=== PATIENT | male | born 1955 | race Caucasian/White ===

== ENCOUNTER 2022-10-18 18:45 | Inpatient (IN) | payer MEDICARE, SELFPAY ==
[2022-10-18 20:04] LABS: Platelet Count 251 10^3/cmm (157-399)
[2022-10-18 20:12] LABS: Partial Thromboplastin Time 72.3 SECONDS (23.9-36.7)
[2022-10-18] MEDS: dilTIAZem 60 mg Tablet PO (20:45)
[2022-10-18 20:46] VITALS: BP 119/81; PULSE 83; RESP 17; TEMP 36.5; O2SAT 92
[2022-10-18] MEDS: heparin drip 25,000 UNIT/500 ML PREMIX 24.79 UNIT IV (21:05)
--- NOTE | 2022-10-18 22:02 | P.HP_ITS ---
Providers/Chief Complaint Admitting Physician: Jolanta Bond MD Primary Care Provider: Aureliano Golden Chief Complaint: Heart History of Present Illness Brandt Mcgill is a 67 year old male with history of asthma hypertension depression was transferred from [facility] for new onset atrial fibrillation. He had presented to [facility] for complaint of difficulty breathing for 1 week. He had multiple visits to his PCP for shortness of breath which was thought to be an asthma exacerbation, but eventually he was legs started getting swollen and he went to [facility] for further evaluation. There he was found to have atrial fibrillation with rapid ventricular rate and was started on Cardizem drip heparin drip received 1 dose of digoxin and IV Lasix 40 mg. He started feeling better and now is transferred to [facility] for further intervention. He denies any history of fever cough cold nausea vomiting chest pain urinary or bowel complaints. Review of Systems Narrative: As per HPI Medications/Allergies Home Medications Medication Instructions Recorded Confirmed Last Taken Type aspirin 1XD 10/18/22 10/18/22 History clonazepam 2 mg tablet mg BEDTIME 10/18/22 10/17/22 History duloxetine 60 mg capsule,delayed mg 1XD 10/18/22 10/18/22 History release sprinkle gabapentin 2XD 10/18/22 10/18/22 History losartan 100 1 tab PO DAILY 10/18/22 10/18/22 10/18/22 History mg-hydrochlorothiazide 25 mg tablet metformin 1XD 10/18/22 10/18/22 History tizanidine 4 mg tablet mg 2XD 10/18/22 10/18/22 History Allergies Allergy/AdvReac Type Severity Reaction Status Date / Time morphine Allergy ADR-Nightma Verified 10/18/22 19:40 re Vitals/I&O/Wt Last Vital Signs Temp 97.7 F 10/18/22 20:46 Pulse 83 10/18/22 20:46 Resp 17 10/18/22 20:46 BP 119/81 10/18/22 20:46 Pulse Ox 92 10/18/22 20:46 O2 Del Method Room Air 10/18/22 20:46 10/18/22 10/18/22 10/18/22 06:59 14:59 22:59 Output Total 400 / 400 Balance -400 / -400 Weight last 48 hrs Weight 88.541 kg Weight 88.507 kg Physical Exam Narrative: He is alert awake oriented x3 comfortably lying in bed not in acute distress Chest clear to auscultation bilaterally Cardiovascular normal heart sounds irregular rhythm Abdomen soft nontender nondistended normal bowel sounds Extremities 2+ bilateral pedal edema present Data 10/18/22 19:45 A&P Assessment and plan (1) New onset atrial fibrillation: (2) Shortness of breath: Plan Patient had presented with difficulty breathing and bilateral lower extremity swelling likely secondary to new onset atrial fibrillation of unknown etiology Will do Cardizem 60 mg 3 times daily Discontinue heparin drip Check 2D echo in a.m. Will give Lovenox 80 mg every 12 for anticoagulation Check labs in a.m. Resume home medications Cardiac diet [facility] is [facility] Necessity Statement*: He needs continued hospitalization for more than 2 midnights for further evaluation of new onset atrial fibrillation Time Spent in Patient Care: 30 minutes Coding Level of Care Code Acute Code for [facility] Fwd Diagnoses New onset atrial fibrillation I48.91 Shortness of breath R06.02 Time Spent (min) 30
[2022-10-19] VITALS (87 sets, daily range): BP systolic 96–136; BP diastolic 56–86; PULSE 74–132; RESP 11–53; TEMP 36.4–36.8; O2SAT 84–96
--- NOTE | 2022-10-19 00:17 | XRR_ITS ---
PROCEDURE INFORMATION: Exam: XR Chest Exam date and time: 10/19/2022 4:32 AM Age: 67 years old Clinical indication: Dyspnea; Additional info: Shortness of breath TECHNIQUE: Imaging protocol: Radiologic exam of the chest. Views: 1 view. COMPARISON: No relevant prior studies available. FINDINGS: Tubes, catheters and devices: A right-sided peripherally inserted central catheter is noted with its tip overlying the cavoatrial junction. Lungs: Bibasilar opacities likely represent effusion and/or parenchymal disease. Pleural spaces: Unremarkable. No pleural effusion. No pneumothorax. Heart/Mediastinum: Unremarkable. No cardiomegaly. Bones/joints: Cervical fixation hardware and degenerative changes are noted in the bones. XR/XR chest 1V portable [id number] IMPRESSION: Basilar opacity likely representing effusion and/or parenchymal disease.
[2022-10-19] MEDS: famotidine 20 mg/2 mL INJ IVP (01:19)
[2022-10-19 03:18] LABS: Partial Thromboplastin Time 64.9 SECONDS (23.9-36.7)
[2022-10-19 03:36] LABS: NT Pro B Type Natriuretic Pept 4173 pg/mL (0-125)
--- NOTE | 2022-10-19 08:08 | USCV_ITS ---
Brandt Mcgill Age: 67 Gender: M : 1955 Exam Date: 10/19/2022 08:42 Ordering Phys: Jolanta Bond MD Technologist: Benji Brice Exam Location: [place] Indication: afib BP: 158 / 94 HR: 100 Rhythm: Atrial fibrillation Technical Quality: Poor MEASUREMENTS (Male / Female) Normal Values 2D ECHO LVOT Diameter 2.0 cm LV Ejection Fraction MOD 2C 46.4 % LV Ejection Fraction 2C AL 46.4 % LA Diameter 3.7 cm LA Width 4.2 cm LA Height 5.8 cm RA Width 3.6 cm RA Height 4.6 cm Aorta at Sinotubular Diameter 3.0 cm IVC Diameter 2.0 cm M-MODE Aortic Annulus Diameter 3.1 cm LA Ao Ratio MM 1.3 MV E Point Septal Separation 0.9 cm DOPPLER AV Peak Velocity 179.0 cm/s LVOT Peak Velocity 99.0 cm/s AV Area Cont Eq vti 1.9 cm squared AV Area Cont Eq pk 1.7 cm squared MV Peak Velocity 150.0 cm/s MV Area PHT 7.9 cm squared Mitral E to A Ratio 3.6 MV E' Velocity 70.5 cm/s Mitral E to MV E' Ratio 11.3 Mitral E to LV E' Lateral Ratio 10.0 Mitral E to LV E' Septal Ratio 12.8 TR Peak Velocity 244.2 cm/s TR Peak Gradient 23.9 mmHg TR Mean Velocity 196.5 cm/s TR Mean Gradient 16.8 mmHg TR Velocity Time Integral 59.1 cm Right Atrial Pressure 3.0 mmHg Pulmonary Artery Systolic Pressu 26.9 mmHg PV Peak Velocity 104.7 cm/s RV Acceleration Time 0.1 s RV Ejection Time 0.2 s RV AcT/ET 0.4 FINDINGS Left Ventricle Study is poor in quality. Only 1 view is of any use. The ventricle is upper limit of normal in size to mildly enlarged. There is mild global hypokinesis with an ejection fraction of 40%. Diastolic function cannot be determined due to the rhythm. The rhythm is atrial fibrillation. Right Ventricle Normal right ventricular size and systolic function. Normal right ventricular systolic pressure. Right Atrium The right atrium is normal in size. Left Atrium Mildly increased left atrial size. Mitral Valve Structurally normal mitral valve. Trace mitral valve regurgitation. Aortic Valve Aortic valve not well visualized. Structurally normal trileaflet aortic valve. Mild aortic valve calcification. Aortic valve sclerosis without stenosis or regurgitation. Tricuspid Valve Tricuspid valve not well visualized. Trace tricuspid valve regurgitation. Pulmonic Valve Pulmonic valve not well visualized. Pericardium Normal pericardium without effusion. Aorta Normal ascending aorta dimension. IVC Inferior vena cava is dilated. CONCLUSIONS Study is poor in quality. Only 1 view is of any use. The ventricle is upper limit of normal in size to mildly enlarged. There is mild global hypokinesis with an ejection fraction of 40%. Diastolic function cannot be determined due to the rhythm. The rhythm is atrial fibrillation. Mildly increased left atrial size. Structurally normal mitral valve. Trace mitral valve regurgitation. Inferior vena cava is dilated. There are no prior echocardiogram studies to compare. Dr. Ke Ferrell MD (Electronically Signed) Final Date: 19 October 2022 12:57 S
[2022-10-19] MEDS: dilTIAZem 60 mg Tablet PO (08:18)
[2022-10-19 09:13] LABS: Partial Thromboplastin Time 48.4 SECONDS (23.9-36.7)
[2022-10-19 09:15] LABS: D Dimer 2.28 ug/mLFEU (0-0.59)
[2022-10-19 09:31] LABS: Anion Gap 13.4 (5-19); Blood Urea Nitrogen 9 mg/dL (8-23); Calcium 8.9 mg/dL (8.5-10.5); Carbon Dioxide 28 mmol/L (22-29); Chloride 98 mmol/L (98-107); Glomerular Filtration Rate 96.1 mL/min (90-130); Glucose 157 mg/dL (65-115); Magnesium 1.9 mg/dL (1.7-2.3); Osmolality Calculated 284 mOsm/kg (285-295); Potassium 3.4 mmol/L (3.5-5.1); Sodium 136 mmol/L (136-145); Thyroid Stimulating Hormone 2.11 uIU/mL (0.27-4.20)
--- NOTE | 2022-10-19 10:16 | CT_ITS ---
WS: [id number] CTA OF THE CHEST WITH PULMONARY EMBOLISM PROTOCOL TECHNIQUE: High-resolution contrast enhanced CTA of the chest with coronal and sagittal reformatted i mages with pulmonary embolism protocol. MIP images are also reviewed. CLINICAL INFORMATION: afib, sob COMPARISON: None. DLP: 510.[address] scans at [facility] use at least one of these dose optimization techniques: automated e xposure control; mA and/or kV adjustment per patient size (includes targeted exams where dose is matc hed to clinical indication); or iterative reconstruction. FINDINGS: Proximal main pulmonary arteries are normal. Normal segmental and subsegmental pulmonary arteries. No evidence of pulmonary embolus. Cardiomegaly. Aneurysmal ascending thoracic aorta measuring 4.1 cm. Enlarged LEFT ventricle. No media stinal or hilar lymphadenopathy. No axillary lymphadenopathy. Small to moderate bilateral pleural effusions with compressive atelectasis in the lung bases. Upper l ungs are better aerated. A few hazy LEFT opacities in the lung bases. Small hazy opacity in the LEFT upper lobe anteriorly likely infectious or inflammatory measuring 1.5 cm. Interstitial edema in the l saud bases. Contrast reflux into the hepatic veins. Recommend correlation for RIGHT heart dysfunction. Moderate t horacic kyphosis with ankylosis. Chronic anterior wedging at L1. IMPRESSION: 1. Proximal main pulmonary arteries are normal. No evidence of pulmonary embolus. 2. Aneurysmal ascending thoracic aorta measuring 4.1 cm. 3. Cardiomegaly. 4. Small to moderate bilateral pleural effusions with compressive atelectasis in the lung bases. 5. A few hazy opacities in both lower lobes with a small hazy opacity in the LEFT upper lobe anterio rly likely infectious or inflammatory. 6. Interstitial edema in the lung bases. Reflux of contrast into the hepatic veins can be seen with RIGHT heart dysfunction.
--- NOTE | 2022-10-19 10:16 | USCV_ITS ---
Brandt Mcgill Age: 67 Gender: M : 1955 Exam Date: 10/19/2022 11:02 Ordering Phys: Jolanta Bond MD Technologist: MICHAEL Exam Location: [facility] Indication: LE Swelling HISTORY: Lower extremity swelling. PROCEDURES: Venous duplex imaging was performed in bilateral lower extremities. The following venous structures were evaluated: common femoral vein, profunda vein, proximal portion of the greater saphenous vein, superficial femoral vein, and the popliteal vein. In addition, the posterior tibial and peroneal trunk were evaluated. Serial compression, augmentation maneuvers, and spectral Doppler flow evaluation were performed. FINDINGS: No evidence of DVT seen in any vessel visualized at this time. CONCLUSIONS No evidence of right lower extremity DVT. No evidence of left lower extremity DVT. Rasta Corley MD (Electronically Signed) Final Date: 19 October 2022 15:08 S
--- NOTE | 2022-10-19 10:16 | PM.PN ---
Subjective Subjective: , no signs of patient stating that his main complaint was shortness of breath Currently he is in atrial flutter No active chest pain endorsing feeling better Currently on room air I have requested CTA chest and venous Doppler for high D-dimer Potassium is low will be repleted Vitals/I&O/Wt Last Vital Signs Temp 97.9 F 10/19/22 07:43 Pulse 100 10/19/22 07:43 Resp 29 H 10/19/22 07:43 BP 133/79 10/19/22 07:43 Pulse Ox 94 10/19/22 07:43 O2 Del Method Room Air 10/19/22 07:43 FiO2 21 10/19/22 01:06 10/18/22 10/19/22 10/19/22 22:59 06:59 14:59 Intake Total 400 / 400 284.672 / 284.672 Output Total 1025 / 1025 400 / 1425 Balance -1025 / -1025 0 / -1025 284.672 / 284.672 Weight last 48 hrs Weight 86.636 kg Weight 88.541 kg Weight 88.507 kg Physical Exam Narrative: Atrial flutter heart rate 70s Awake and alert GCS 15 Currently on room air Lower extremity edema 2+ Abdomen soft S1, S2 variable Data 10/18/22 19:45 10/19/22 08:34 A&P Assessment and plan (1) Shortness of breath: (2) New onset atrial fibrillation: (3) New onset of congestive heart failure: (4) Hypokalemia: Plan Hypokalemia: Repleted New onset CHF Requested echo Start low-dose Lasix We will add magnesium for mildly low magnesium 1.9 Atrial flutter without RVR continue Cardizem Check TSH, for high D-dimer I requested venous Doppler and CTA chest to rule out PE I have started patient on therapeutic Lovenox discontinued heparin We will like to monitor 1 more day Full code Cardiac diet Attestations Medical Necessity Statement*: Discharge tomorrow if stable Diagnoses Shortness of breath R06.02 New onset atrial fibrillation I48.91 New onset of congestive heart failure I50.9 Hypokalemia E87.6
--- NOTE | 2022-10-19 10:39 | ECG_ITS ---
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 Measurements Intervals [place] Rate: 75 P: 0 AL: 0 QRS: 62 QRSD: 97 T: 213 QT: 456 QTc: 512 Interpretive Statements ATRIAL FLUTTER/TACHYCARDIA ST DEVIATION AND MODERATE T-WAVE ABNORMALITY, CONSIDER ANTEROLATERAL ISCHEMIA [-0.1+ mV T-WAVE IN V3-V6] ST DEVIATION AND MODERATE T-WAVE ABNORMALITY, CONSIDER INFERIOR ISCHEMIA [-0.1+ mV T-WAVE IN II/aVF] No previous ECG available for comparison Electronically Signed On 10-19-2022 17:20:47 CDT by Leeann Bella M.D. [id number]
[2022-10-19] MEDS: potassium chloride ER 20 mEq Tablet 40 MEQ PO (10:48)
[2022-10-19] MEDS: enoxaparin 80 mg/0.8 mL Syringe SUBCUT ×2 (10:48→23:05)
[2022-10-19] MEDS: dilTIAZem 30 mg Tablet PO ×3 (10:48→20:22)
[2022-10-19 10:55] LABS: Troponin(5th) Baseline 64 ng/L (0-15)
[2022-10-19 11:08] LABS: Troponin 5 2HR 61.99 ng/L (0-15)
[2022-10-19 11:09] LABS: Troponin 5 2HR Delta -2.01 ABS# (0-10)
--- NOTE | 2022-10-19 11:55 | ECG_ITS ---
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 Measurements Intervals [place] Rate: 75 P: 0 NC: 0 QRS: 56 QRSD: 85 T: -82 QT: 423 QTc: 473 Interpretive Statements ATRIAL FLUTTER/TACHYCARDIA MODERATE T-WAVE ABNORMALITY, CONSIDER ANTEROLATERAL ISCHEMIA [-0.1+ mV T-WAVE IN V3-V6] MODERATE T-WAVE ABNORMALITY, CONSIDER INFERIOR ISCHEMIA [-0.1+ mV T-WAVE IN II/aVF] Compared to ECG 10/19/2022 10:39:02 No significant changes Electronically Signed On 10-19-2022 17:23:12 CDT by Leeann Bella M.D. [id number]
[2022-10-19] MEDS: iohexol 350 mg/mL 500 mL Btl (per mL) IV (13:25)
[2022-10-19 15:20] LABS: Troponin 5 6HR 43.73 ng/L (0-15)
--- NOTE | 2022-10-19 16:16 | ECG_ITS ---
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 Measurements Intervals [place] Rate: 112 P: 0 CO: 0 QRS: 61 QRSD: 86 T: 233 QT: 346 QTc: 473 Interpretive Statements ATRIAL FLUTTER/TACHYCARDIA WITH RAPID VENTRICULAR RESPONSE ST DEVIATION AND MODERATE T-WAVE ABNORMALITY, CONSIDER ANTEROLATERAL ISCHEMIA [-0.1+ mV T-WAVE IN V3-V6] ST DEVIATION AND MODERATE T-WAVE ABNORMALITY, CONSIDER INFERIOR ISCHEMIA [-0.1+ mV T-WAVE IN II/aVF] Compared to ECG 10/19/2022 11:55:01 No significant changes Electronically Signed On 10-19-2022 17:24:18 CDT by Leeann Bella M.D. [id number]
[2022-10-19] MEDS: magnesium oxide 400 mg tablet PO (17:51)
[2022-10-20] VITALS (188 sets, daily range): BP systolic 98–150; BP diastolic 55–97; PULSE 70–151; RESP 10–37; TEMP 36.3–36.6; O2SAT 91–99
[2022-10-20 04:09] LABS: Basophils % 0.6 %; Eosinophils # 0.1 10^3/uL (0.0-0.8); Eosinophils % 1.3 %; Hematocrit 40.7 % (37-53); Lymphocytes # 1.5 10^3/uL (0.8-4.8); Lymphocytes % 21.9 %; Mean Corpuscular HGB Conc 32.9 g/dL (30-55); Mean Corpuscular Hemoglobin 33.3 pg (27-33); Mean Platelet Volume 9.3 fL (7.4-10.4); Monocytes # 0.7 10^3/uL (0.2-0.9); Monocytes % 10.1 %; Neutrophils # 4.49 10^3/uL (1.8-7.7); Neutrophils % 65.7 %; Nucleated Red Blood Cells % 0 %; Platelet Count 258 10^3/cmm (157-399); Red Blood Count 4.03 10^6/uL (3.85-5.65); Red Cell Distribution Width 14.6 % (12.1-15.1); White Blood Count 6.84 10^3/uL (3.29-11.43)
[2022-10-20 04:26] LABS: Alanine Aminotransferase 41 U/L (0-41); Alkaline Phosphatase 112 U/L (40-130); Anion Gap 12.7 (5-19); Aspartate Amino Transferase 29 U/L (0-40); Blood Urea Nitrogen 9 mg/dL (8-23); Calcium 8.9 mg/dL (8.5-10.5); Carbon Dioxide 27 mmol/L (22-29); Chloride 100 mmol/L (98-107); Globulin 3.2 g/dL (1.3-4.6); Glomerular Filtration Rate 96.1 mL/min (90-130); Glucose 128 mg/dL (65-115); Magnesium 2.1 mg/dL (1.7-2.3); Osmolality Calculated 282 mOsm/kg (285-295); Phosphorus 2.9 mg/dL (2.5-4.5); Potassium 3.7 mmol/L (3.5-5.1); Sodium 136 mmol/L (136-145); Total Bilirubin 0.7 mg/dL (0.15-1.2); Total Protein 6.2 g/dL (6.6-8.7)
[2022-10-20] MEDS: dilTIAZem 30 mg Tablet PO (05:31)
[2022-10-20] MEDS: FUROsemide 20 mg Tablet PO (08:22)
[2022-10-20] MEDS: magnesium oxide 400 mg tablet PO ×2 (08:22→18:27)
[2022-10-20] MEDS: enoxaparin 80 mg/0.8 mL Syringe SUBCUT (11:15)
[2022-10-20] MEDS: potassium chloride ER 20 mEq Tablet PO (11:15)
[2022-10-20] MEDS: FUROsemide 10 mg/mL SDV 2mL 20 MG IVP (11:16)
--- NOTE | 2022-10-20 11:39 | P.CONIM_ITS ---
Providers/Reason For Consult Consulting Physician/Specialty*: Cardiovascular medicine Reason for Consult*: Atrial fibrillation, left ventricular dysfunction, congestive heart failure, elevated troponin Requesting Physician: Hospitalist Attending Physician: Jolanta Bond MD Primary Care Provider: Aureliano Golden History of Present Illness History of Present Illness Brandt Mcgill is a 67 year old male who typically receives his health care in [facility]. His primary care provider is in that area. He has been having intermittent episodes of shortness of breath for the last several weeks. His tells me that these have been sudden episodes of breathlessness. They last for a day or 2 and then go away. About a week ago he had an episode which was very difficult to for him. He had been seeing his primary care provider who was concerned that perhaps it was an exacerbation of his reactive airways dis ease. He denies any chest pain or any sensation of a rapid heart rate. The problem only worsened and when he developed lower extremity edema he went to [facility] in [place] a couple days ago. There he was diagnosed with congestive heart failure, atrial fibrillation with a rapid rate. He received aspirin, Cardizem bolus and drip, Lasix 40 mg IV and a heparin drip. His initial heart rate was 147 bpm with an atrial fibrillation as the rhythm. He was transferred up here on heparin, switched to Lovenox, placed on metoprolol and continues on IV Lasix and potassium. There were no beds anywhere in the area. His EKGs here have shown atrial fibrillation with a controlled ventricu lar response. Intermittently has atrial fibrillation with a mildly rapid rate. His initial troponin was 64, the second [address] the last 44[address] CT of the chest showed no pulmonary embolism. Lower extremity duplex showed no DVT. An echo was a very poor quality study with an estimated EF of 40%. Only 1 view was available so it is difficult to assess wall motion disturbances. He has a history of atrial fibrillation with a bout of tick fever several years ago but it resolved on its own. He also has a history of underlying asthma, hypertension and glucose intolerance. He takes an angiotensin receptor cyrus with hydrochlorothiazide and metformin at home. Review of Systems Narrative: Review of systems is negative. Medications/Allergies Home Medications Medication Instructions Recorded Confirmed Last Taken Type aspirin 81 mg PO BEDTIME 10/18/22 10/19/22 10/18/22 History clonazepam 2 mg tablet 2 mg PO BEDTIME 10/18/22 10/19/22 10/17/22 History duloxetine 60 mg capsule,delayed 60 mg PO QAM 10/18/22 10/19/22 10/18/22 History release sprinkle gabapentin 200 mg PO BID 10/18/22 10/19/22 10/18/22 History losartan 100 1 tab PO QAM 10/18/22 10/19/22 10/18/22 History mg-hydrochlorothiazide 25 mg tablet metformin 500 mg PO BID 10/18/22 10/19/22 10/18/22 History tizanidine 4 mg tablet 4 mg PO BID 10/18/22 10/19/22 10/18/22 History albuterol sulfate 90 mcg/actuation 2 inh inhalation Q4H PRN Shortness 10/19/22 10/19/22 Unknown History aerosol inhaler Of Breath cholecalciferol (vitamin D3) 50 50 mcg PO DAILY 10/19/22 10/19/22 Unknown History mcg (2,000 unit) tablet (Vitamin D3) clonazepam 1 mg tablet 1 mg PO DAILY 10/19/22 10/19/22 10/17/22 History grape seed extract 50 mg tablet 150 mg PO DAILY 10/19/22 10/19/22 Unknown History magnesium 250 mg tablet 250 mg PO DAILY 10/19/22 10/19/22 Unknown History multivitamin 1 tab PO DAILY 10/19/22 10/19/22 Unknown History selenium 50 mcg tablet 50 mcg PO DAILY 10/19/22 10/19/22 Unknown History zinc acetate 50 mg (zinc) capsule 50 mg PO DAILY 10/19/22 10/19/22 Unknown History Allergies Allergy/AdvReac Type Severity Reaction Status Date / Time morphine Allergy ADR-Nightma Verified 10/18/22 19:40 re Current Medications Generic Name Dose Route Start Last Admin Trade Name Freq PRN Reason Stop Dose Admin Enoxaparin Sodium 80 mg 10/19/22 11:00 10/20/22 11:15 Enoxaparin 80 Mg/0.8 Ml Syringe SUBCUT 80 mg Q12H YONIS Administration Furosemide 20 mg 10/20/22 10:30 10/20/22 11:16 Furosemide 10 Mg/Ml Sdv 2ml IVP 20 mg Q24H YONIS Administration Magnesium Oxide 400 mg 10/19/22 18:00 10/20/22 08:22 Magnesium Oxide 400 Mg Tablet PO 400 mg BID YONIS Administration Potassium Chloride 20 meq 10/20/22 10:30 10/20/22 11:15 Potassium Chloride Er 20 Meq Tablet PO 20 meq DAILY YONIS Administration PFSH Acute PFSH: Medical History (Updated 10/20/22 @ 11:49 by Ke Ferrell MD) Cardiomyopathy Essential hypertension Glucose intolerance Vitals/I&O/Wt Last Vital Signs Temp 97.4 F L 10/20/22 09:00 Pulse 101 H 10/20/22 09:32 Resp 20 H 10/20/22 09:32 BP 98/55 10/20/22 09:00 Pulse Ox 96 10/20/22 09:32 O2 Del Method Room Air 10/20/22 09:32 FiO2 21 10/20/22 00:00 10/19/22 10/20/22 10/20/22 22:59 06:59 14:59 Intake Total 240 / 1244.672 240 / 240 Balance 240 / 1244.672 240 / 240 Weight last 48 hrs Weight 191 lb Weight 195 lb 3.2 oz Weight 195 lb 2 oz Physical Exam Narrative: GENERAL: In general he is comfortable at rest but is easily breathless with minimal exercise. HEENT: Exam within normal limits. NECK: Supple without jugular vein distention. The carotid upstroke is normal without bruits. BACK: Exam normal. LUNGS: Clear. Occasional moist rales in the bases HEART: Irregularly irregular rhythm ABDOMEN: Benign without organomegaly or tenderness. EXTREMITIES: No edema. NEUROLOGIC: Exam normal. SKIN: Unremarkable. Data 10/20/22 03:22 10/20/22 03:22 A&P Assessment and plan (1) New onset atrial fibrillation: (2) Shortness of breath: (3) New onset of congestive heart failure: (4) Cardiomyopathy: (5) Essential hypertension: (6) Glucose intolerance: Plan He is still volume overloaded. He needs continued diuresis. I would increase the Lopressor to 50 mg twice daily and add back his angiotensin receptor cyrus with thiazide diuretic. I would also switch him over to Eliquis since he will need to go home on this drug. I had a lengthy discussion with the patient and his . They request that he receive his outpatient cardiac care at [place]. He will need a stress test eventually to rule out ischemia though I do not think this is ischemia related. 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 I think he has been in atrial fibrillation longer than he realizes. Once he is compensated he may be discharged from here on p.o. Lasix, losartan with hydrochlorothiazide, potassium, metoprolol tartrate 50 mg 2 times a day and Eliquis 5 mg twice daily. He should then see a commercial floor covering installer in [place] for follow-up and for stress testing arrangements. Consult Attestations Medical Necessity Statement: Hospitalization for management of heart failure, atrial fibrillation. and Moderate Time for a total of 40 minutes, includes reviewing past or interval history, examining/interviewing patient, placing orders, counseling patient/family/other support, updating patient/family/other support, discussing plan of care with staff, communicating with other healthcare providers and documenting encounter Diagnoses New onset atrial fibrillation I48.91 Shortness of breath R06.02 New onset of congestive heart failure I50.9 Cardiomyopathy I42.9 Essential hypertension I10 Glucose intolerance E74.39
--- NOTE | 2022-10-20 12:32 | PM.PN ---
Subjective Subjective: Morning consulted Dr. Ferrell for EF of 40% with A-fib and CHF exacerbation Patient might need ischemic work up Patient is in agreement, at the bedside All questions answered Discontinue Cardizem and change it to metoprolol because of low EF At home regimen of losartan, he also wants his gabapentin and Cymbalta Vitals/I&O/Wt Last Vital Signs Temp 97.4 F L 10/20/22 09:00 Pulse 101 H 10/20/22 09:32 Resp 20 H 10/20/22 09:32 BP 98/55 10/20/22 09:00 Pulse Ox 96 10/20/22 09:32 O2 Del Method Room Air 10/20/22 09:32 FiO2 21 10/20/22 00:00 10/19/22 10/20/22 10/20/22 22:59 06:59 14:59 Intake Total 240 / 1244.672 240 / 240 Balance 240 / 1244.672 240 / 240 Weight last 48 hrs Weight 86.636 kg Weight 88.541 kg Weight 88.507 kg Physical Exam Narrative: Still signs of fluid overload present GCS 15 Awake and alert Atrial flutter heart rate in 80s Able to lay flat Currently on room air Blood pressure 98/55 mmHg around 9:32 AM Pleasant and cooperative at the bed Data 10/20/22 03:22 10/20/22 03:22 A&P Assessment and plan (1) Glucose intolerance: (2) Essential hypertension: (3) Cardiomyopathy: (4) Hypokalemia: (5) New onset of congestive heart failure: (6) New onset atrial fibrillation: (7) Shortness of breath: Plan Paroxysmal A-fib Anticoagulation switched to Eliquis Cardizem switched to metoprolol 50 mg twice daily Hypertension history Losartan added, this morning blood pressure is 98/55mmhg, will add holding parameters if systolic blood pressure below 100 he should not receive losartan Patient is already getting diuretics New onset CHF exacerbation EF is 40% Systolic CHF exacerbation Likely tachyarrhythmia related Will need ischemia work-up patient will like to follow-up at [facility] Appreciate Dr. Ferrell's recommendation Plan to discharge him tomorrow Currently on room air Monitor blood pressure and heart rate Full code Cardiac diet For diabetes related neuropathy continue gabapentin and Cymbalta Attestations Medical Necessity Statement*: Discharge tomorrow Diagnoses Glucose intolerance E74.39 Essential hypertension I10 Cardiomyopathy I42.9 Hypokalemia E87.6 New onset of congestive heart failure I50.9 New onset atrial fibrillation I48.91 Shortness of breath R06.02
--- NOTE | 2022-10-20 13:05 | PC.NURSE ---
Notified Dr. Ferrell that pt's HR is currently running consistently in the 140's. Metoprolol IVP 5mg x1 ordered
[2022-10-20] MEDS: metoprolol tartrate 1 mg/1 mL SDV 5 mL 5 MG IVP ×3 (13:23→17:20)
--- NOTE | 2022-10-20 15:50 | PC.NURSE ---
Addendum entered by Dano Kuo RN 10/20/22 18:15: HR in the 130's-140's. Instructed to give another dose of Metoprolol 5mg IVP x1 Original Note: Informed Dr. Ferrell that the pt's HR has once again been consistently staying in the 130';s
--- NOTE | 2022-10-20 16:40 | PC.NURSE ---
Notified Dr. Ferrell that the pt's HR response has been minimal with the last dose of Metoprolol. Instructed to wait 15 minutes and give another dose of Metoprolol 5mg IVP and then give the night scheduled dose of po metoprolol 1 hour later.
[2022-10-20] MEDS: metoprolol tartrate 50 mg Tablet PO ×2 (18:28→22:17)
[2022-10-20] MEDS: gabapentin 100 mg Capsule 200 MG PO (18:29)
[2022-10-20] MEDS: apixaban 5 mg Tablet PO (20:27)
[2022-10-20 20:55] LABS: Glucose Point of Care 180 mg/dL (70-110)
[2022-10-20] MEDS: LORazepam 0.5 mg Tablet PO (23:34)
[2022-10-21] VITALS (9 sets, daily range): BP systolic 121–162; BP diastolic 68–136; PULSE 69–139; RESP 16–34; TEMP 36.4–36.9; O2SAT 89–99
--- NOTE | 2022-10-21 00:03 | PC.NURSE ---
Patient still in afib w/rvr at 2200, rates in 130s. C/O shortness of breath with movement and feelings of anxiety, being uncomfortable. Refusing telemetry. Hospitalist notified, given orders for Metoprolol 50mg PO ONCE and Xanax 0.5mg PO ONCE. Patient stated he couldn't take Xanax because he had already taken his home medication, Clonazepam. Patient educated on medication safety during hospital stay, possible medication interactions, and that treatments during stay were not always the same as home. mapping supervisor and hospitalist notified. Patient then ambulated to nurses station and asked to speak to hospitalist. Notified hospitalist of request. Patient redirected back to room, hospitalist present. Given orders for Lorazepam 0.5mg PO ONCE. Home medication, Clonazepam, counted with second nurse in front of patient. Appropriate paperwork signed by both nurses and patient. Tamper proof tape was applied to medication bottle and then placed in pyxis. Recliner placed in room to help with patient comfort. Patient reeducated about need for telemetry and was agreeable to wear it at this time.
[2022-10-21 04:37] LABS: Anion Gap 18.8 (5-19); Blood Urea Nitrogen 20 mg/dL (8-23); Calcium 10.4 mg/dL (8.5-10.5); Carbon Dioxide 28 mmol/L (22-29); Chloride 98 mmol/L (98-107); Glomerular Filtration Rate 60.2 mL/min (90-130); Glucose 154 mg/dL (65-115); Magnesium 2.3 mg/dL (1.7-2.3); Osmolality Calculated 294 mOsm/kg (285-295); Potassium 5.8 mmol/L (3.5-5.1); Sodium 139 mmol/L (136-145)
[2022-10-21] MEDS: duloxetine 60 mg Capsule PO (05:44)
--- NOTE | 2022-10-21 06:37 | PC.NURSE ---
Patient continues to pull of telemetry. Education provided to patient, telemetry reapplied. called and told nurse patient was calling and complaining of sob, 02 at 96 and respirations 24.
--- NOTE | 2022-10-21 07:02 | PM.PN ---
Subjective Subjective: Patient has had a bad night. He became very anxious last evening. He has been complaining of shortness of breath all night. He became confused. He was taking off his monitors and oxygen saturation equipment. He would not keep anything on. His heart rate has been about 130 all night long. He has been up and around and will not sit still. This morning he is sitting upright in bed, is diaphoretic, is tachypneic and his heart rate is 130. His oxygen saturation is 98% on 1 L. Vitals/I&O/Wt Last Vital Signs Temp 97.7 F 10/21/22 04:00 Pulse 135 H 10/21/22 04:00 Resp 34 H 10/21/22 04:00 BP 148/121 10/21/22 04:00 Pulse Ox 99 10/21/22 04:00 O2 Del Method Nasal Cannula 10/21/22 04:00 FiO2 21 10/20/22 20:00 10/20/22 10/21/22 10/21/22 22:59 06:59 14:59 Intake Total 520 / 880 460 / 1340 Output Total 100 / 100 400 / 500 Balance 420 / 780 60 / 840 Physical Exam Narrative: GENERAL: In general he is anxious and short of breath HEENT: Exam within normal limits. NECK: Supple without jugular vein distention. The carotid upstroke is normal without bruits. BACK: Exam normal. LUNGS: Clear. HEART: Irregular rate and rhythm tachycardia ABDOMEN: Benign without organomegaly or tenderness. EXTREMITIES: No edema. NEUROLOGIC: Exam normal. SKIN: Unremarkable. Data 10/20/22 03:22 10/21/22 03:19 A&P Assessment and plan (1) Glucose intolerance: (2) Essential hypertension: (3) Cardiomyopathy: (4) New onset of congestive heart failure: (5) Shortness of breath: (6) New onset atrial fibrillation: Plan Most of this I think is anxiety. I am going to start him on a Cardizem drip today to get his heart rate under better control. His potassium I so will hold the potassium. I am also going to get a chest x-ray to be sure we do not have anything else going on. Attestations Medical Necessity Statement*: Continued hospitalization for management of above-mentioned medical problems. and High Time for a total of 50 minutes, includes reviewing past or interval history, examining/interviewing patient, placing orders, counseling patient/family/other support, updating patient/family/other support, discussing plan of care with staff, communicating with other healthcare providers, documenting encounter and coordinating care Diagnoses Glucose intolerance E74.39 Essential hypertension I10 Cardiomyopathy I42.9 New onset of congestive heart failure I50.9 Shortness of breath R06.02 New onset atrial fibrillation I48.91
--- NOTE | 2022-10-21 07:09 | XRR_ITS ---
PROCEDURE INFORMATION: Exam: XR Chest Exam date and time: 10/21/2022 7:55 AM Age: 67 years old Clinical indication: Shortness of breath, CHF TECHNIQUE: Imaging protocol: Radiologic exam of the chest. Views: 1 view. COMPARISON: CR (CHEST, ) 10/19/2022 4:32 AM FINDINGS: Tubes, catheters and devices: Right PICC with tip in the high right atrium. Lungs: There is slightly worsening opacity at the right base reflecting effusion and consolidation. Decreased left effusion. Persistent left basilar/retrocardiac consolidation. Pleural spaces: No pneumothorax. Heart/Mediastinum: The cardiac silhouette is unchanged. No gross evidence of pneumomediastinum. Bones/joints: Cervical hardware is noted. No gross fracture. XR/XR chest 1V portable [id number] IMPRESSION: Slightly worsening opacity at the right base reflecting effusion and consolidation. Decreased left effusion. Persistent left basilar/retrocardiac consolidation.
[2022-10-21] MEDS: dilTIAZem 100 MG in sodium chloride 0.9% (add-van) 100 ML IV ×2 (07:40→18:25)
[2022-10-21] MEDS: FUROsemide 10 mg/mL SDV 2mL 20 MG IVP ×2 (08:31→10:06)
[2022-10-21] MEDS: losartan 50 mg Tablet PO (08:32)
[2022-10-21] MEDS: gabapentin 100 mg Capsule 200 MG PO ×2 (08:32→18:25)
[2022-10-21] MEDS: metoprolol tartrate 50 mg Tablet PO ×2 (08:32→20:36)
[2022-10-21] MEDS: magnesium oxide 400 mg tablet PO ×2 (08:32→18:24)
[2022-10-21] MEDS: sodium polystyrene sulfonate 15 gm/60 mL Btl PO (08:32)
[2022-10-21] MEDS: apixaban 5 mg Tablet PO ×2 (08:32→20:36)
[2022-10-21] MEDS: ALPRAZolam 0.5 mg Tablet PO ×2 (08:33→19:37)
--- NOTE | 2022-10-21 08:47 | PC.SOCIAL ---
IMM update IMM updated with patient and family at bedside. Verbalized an understanding. Copy pg 2 provided. Initialled, dated, timed, and placed in chart.
--- NOTE | 2022-10-21 09:13 | PM.PN ---
Subjective Subjective: This morning patient has hyperkalemia, could not sleep well all night, will give him Xanax, chest x-ray showing possible pneumonia We will restart antibiotics Currently on Cardizem drip for A-fib RVR Vitals/I&O/Wt Last Vital Signs Temp 98.3 F 10/21/22 08:00 Pulse 124 H 10/21/22 08:00 Resp 18 10/21/22 08:00 BP 137/114 10/21/22 08:00 Pulse Ox 94 10/21/22 08:00 O2 Del Method Nasal Cannula 10/21/22 08:00 O2 Flow Rate 2 10/21/22 08:00 FiO2 21 10/20/22 20:00 10/20/22 10/21/22 10/21/22 22:59 06:59 14:59 Intake Total 520 / 880 460 / 1340 10.959 / 10.959 Output Total 100 / 100 400 / 500 Balance 420 / 780 60 / 840 10.959 / 10.959 Physical Exam Narrative: Patient seems very anxious Laying flat Currently on 2 L A-fib RVR currently on Cardizem drip at the bedside GCS 15 Nonfocal neuro exam S1, S2 variable Lower extremity edema 2+ Data 10/20/22 03:22 10/21/22 03:19 A&P Assessment and plan (1) Glucose intolerance: (2) Essential hypertension: (3) Cardiomyopathy: (4) Hypokalemia: (5) New onset of congestive heart failure: (6) Shortness of breath: (7) Community acquired pneumonia: Plan Community acquired pneumonia Start antibiotics ceftriaxone and azithromycin We will request sputum culture Patient has remained afebrile New onset heart failure related tachyarrhythmia Continue diuresis Hyperkalemia: Given Kayexalate Insomnia, anxiety given Xanax this morning continue Cymbalta and gabapentin home dose A-fib RVR currently on Cardizem drip Metoprolol 50 mg twice daily along Eliquis Patient will need ischemic work-up Further plan will be made as per Dr. Ferrell recommendations Cardiac diet Full code Patient will stay 1 more day Attestations Medical Necessity Statement*: Continue medical management Diagnoses Glucose intolerance E74.39 Essential hypertension I10 Cardiomyopathy I42.9 Hypokalemia E87.6 New onset of congestive heart failure I50.9 Shortness of breath R06.02 Community acquired pneumonia J18.9
[2022-10-21] MEDS: cefTRIAXone 1,000 MG in sodium chloride 0.9% (plus) 50 ML 100 MG IV (10:07)
[2022-10-21] MEDS: azithromycin 250 mg Tablet 500 MG PO (10:07)
[2022-10-21 12:33] LABS: Adenovirus Not Detected (NOT DETECT); Chlamydia Pneumoniae Not Detected (NOT DETECT); Coronavirus 229E,HKU1,NL63,OC4 Not Detected (NOT DETECT); Human Metapneumovirus Not Detected (NOT DETECT); Human Rhinovirus/Enterovirus Not Detected (NOT DETECT); Influenza A Not Detected (NOT DETECT); Influenza A H1 Not Detected (NOT DETECT); Influenza A H1-2009 Not Detected (NOT DETECT); Influenza A H3 Not Detected (NOT DETECT); Influenza B Not Detected (NOT DETECT); Mycoplasma Pneumoniae Not Detected (NOT DETECT); Parainfluenza Virus Type 1 Not Detected (NOT DETECT); Parainfluenza Virus Type 2 Not Detected (NOT DETECT); Parainfluenza Virus Type 3 Not Detected (NOT DETECT); Parainfluenza Virus Type 4 Not Detected (NOT DETECT); Respiratory Syncytial Virus A Not Detected (NOT DETECT); Respiratory Syncytial Virus B Not Detected (NOT DETECT); SARS-COV-2 Not Detected (NOT DETECT)
--- NOTE | 2022-10-21 15:49 | PC.NURSE ---
PICC line out!!! Pt been sleeping most of the shift once we started getting his rhythm and heart rate under control. Pt states that he woke up from a nap and needed to go to the bathroom and started pulling wires off his chest and apparently one of the wires was his PICC line which was out approx 8cmAnother RN went ahead and d/c'd the PICC line and informed me of the situation. .
[2022-10-22] MEDS: ALPRAZolam 0.5 mg Tablet PO (00:37)
[2022-10-22 04:00] VITALS: BP 144/84; PULSE 83; RESP 26; TEMP 36.9; O2SAT 99
[2022-10-22 04:04] LABS: Basophils % 0.3 %; Eosinophils % 0.2 %; Hematocrit 49.6 % (37-53); Lymphocytes % 16.6 %; Mean Corpuscular HGB Conc 33.3 g/dL (30-55); Mean Corpuscular Hemoglobin 33.3 pg (27-33); Mean Platelet Volume 9.6 fL (7.4-10.4); Monocytes # 0.8 10^3/uL (0.2-0.9); Monocytes % 6.9 %; Neutrophils # 9.03 10^3/uL (1.8-7.7); Neutrophils % 75.6 %; Nucleated Red Blood Cells % 0.2 %; Platelet Count 284 10^3/cmm (157-399); Red Blood Count 4.96 10^6/uL (3.85-5.65); Red Cell Distribution Width 14.6 % (12.1-15.1); White Blood Count 11.95 10^3/uL (3.29-11.43)
[2022-10-22 04:23] LABS: Blood Urea Nitrogen 30 mg/dL (8-23); Calcium 9.5 mg/dL (8.5-10.5); Carbon Dioxide 30 mmol/L (22-29); Chloride 94 mmol/L (98-107); Glomerular Filtration Rate 46.5 mL/min (90-130); Glucose 137 mg/dL (65-115); Osmolality Calculated 290 mOsm/kg (285-295); Sodium 136 mmol/L (136-145)
[2022-10-22 04:25] LABS: Anion Gap 16.2 (5-19); Potassium 4.2 mmol/L (3.5-5.1)
[2022-10-22] MEDS: duloxetine 60 mg Capsule PO (05:13)
[2022-10-22 05:47] VITALS: PULSE 91
--- NOTE | 2022-10-22 06:51 | P.PN_ITS ---
Subjective Subjective: Yesterday Ian was started back on Cardizem IV to get better control of his heart rate. Yesterday morning he was anxious, sleepless and his wanted me to cardiovert him to get him out of atrial fibrillation. I explained to her that that would not be a good idea since he has not been on an anticoagulant we do not know the duration of the atrial fibrillation. His heart rate is improved and he is better. He is no longer diaphoretic. He is mildly short of breath. Heart rate is down in the 70s. He is still on intravenous Cardizem. I obtained a chest x-ray yesterday which did not show any significant heart failure. There may have been some haziness or consolidation along the right border. Hospitalist started him on some antibiotics. He has remained afebrile. White blood cell count is 11.95 today. When he came in it was 6.84. His creatinine is 1.5 today. Yesterday it was 1.2. Urine output 800 mL. This morning he is somewhat agitated and he wants to go home. She states that he cannot sleep. His states that she cannot keep him here any longer because she cannot deal with it. She says that he would do better at home because he can sleep in his own bed. She says the wires are getting in the way and he cannot possibly get up by himself while he is here. He remains on intravenous Lasix and Cardizem. Vitals/I&O/Wt Last Vital Signs Temp 98.4 F 10/22/22 04:00 Pulse 91 10/22/22 05:47 Resp 26 H 10/22/22 04:00 BP 144/84 10/22/22 04:00 Pulse Ox 99 10/22/22 04:00 O2 Del Method Nasal Cannula 10/22/22 04:00 O2 Flow Rate 2 10/21/22 08:00 FiO2 21 10/21/22 18:00 10/21/22 10/21/22 10/22/22 14:59 22:59 06:59 Intake Total 971.334 / 971.334 248.666 / 1220.000 500 / 1720.000 Output Total 800 / 800 Balance 171.334 / 171.334 248.666 / 420.000 500 / 920.000 Physical Exam Narrative: GENERAL: General he is awake and alert HEENT: Exam within normal limits. NECK: Supple without jugular vein distention. The carotid upstroke is normal without bruits. BACK: Exam normal. LUNGS: Clear. HEART: Irregular rate and rhythm ABDOMEN: Benign without organomegaly or tenderness. EXTREMITIES: No edema. NEUROLOGIC: Exam normal. SKIN: Unremarkable. Data 10/22/22 03:16 10/22/22 03:16 A&P Assessment and plan (1) Glucose intolerance: (2) Essential hypertension: (3) Cardiomyopathy: (4) Hypokalemia: (5) New onset of congestive heart failure: (6) Shortness of breath: (7) New onset atrial fibrillation: (8) Acute kidney injury: Plan They both are insisting upon him going home. I explained to them that he was still on intravenous Lasix, needed to be changed over to medication by mouth for the Cardizem and that his creatinine was elevated. Despite that, they both insist that he be able to go home. I would have him sign out AGAINST MEDICAL ADVICE. I told them that my fear was that his heart rate would shoot back up if we send him home before making sure that his heart rate was stable. He also needs to be transitioned off intravenous Lasix and taken off the intravenous antibiotics. My suspicion is he will get readmitted fairly quickly. Attestations Medical Necessity Statement*: Hospitalization required for management of atrial fibrillation, heart failure. and Moderate Time for a total of 35 minutes, includes reviewing past or interval history, examining/interviewing patient, placing orders, counseling patient/family/other support, updating patient/family/other support, discussing plan of care with st aff, communicating with other healthcare providers and documenting encounter Diagnoses Glucose intolerance E74.39 Essential hypertension I10 Cardiomyopathy I42.9 Hypokalemia E87.6 New onset of congestive heart failure I50.9 Shortness of breath R06.02 New onset atrial fibrillation I48.91 Acute kidney injury N17.9
--- NOTE | 2022-10-22 07:00 | PM.DCS ---
Discharge Providers Date of Admission: 10/18/22 18:45 Date of Discharge: October 22, 2022 Attending Provider at Admission: Jolanta Bond MD Attending Provider at Discharge: Jolanta Bond MD Primary Care Provider: Aureliano Golden Diagnoses at Discharge Discharge Diagnosis (1) Glucose intolerance: Status: Acute (2) Essential hypertension: Status: Acute (3) Cardiomyopathy: Status: Acute (4) Hypokalemia: Status: Acute (5) New onset of congestive heart failure: Status: Acute (6) Shortness of breath: Status: Acute (7) New onset atrial fibrillation: Status: Acute (8) Acute kidney injury: Status: Acute Reason for Visit Reason for Visit: Heart Hospital Course Hospital Course 67-year-old male who was transferred from outside facility for management of A-fib RVR at the outside facility he was given Cardizem and digoxin 1 dose however on arrival his heart rate was well controlled he was put on Cardizem drip which was titrated off and switched to metoprolol once we learned about his ejection fraction of 40%, cardiology was consulted, patient required Cardizem drip on and off his medications were changed to metoprolol 50 mg twice daily which were increased to 100 mg twice daily on 10/22 his heart rate is around 80s, he is doing well in terms of congestive heart failure exacerbation, he will need ischemic work-up, EKG did not show ischemic or infarct changes troponin without significant delta, patient and his both want to follow-up with the heat treatment technician at [place] hence stress test will be done outpatient, he did not complain of any chest pain, patient was diuresed with use of IV Lasix 20 mg daily, patient required oxygen for about 24 hours, he was requiring 2 L, chest x-ray showed atelectasis and pneumonia for which he was put on ceftriaxone and azithromycin. He remained afebrile without leukocytosis At the time of discharge he will receive Eliquis 5 mg twice daily along metoprolol 100 mg twice daily, Lasix 20 mg daily with potassium supplement Physical Exam Narrative: Atrial flutter without RVR Signs of congestive heart failure improved Patient is laying supine without any shortness of breath Awake and alert Lower extremity swelling improving GCS 15 Discharge Data Studies Completed and Pending Completed Studies During Hospitalization Category Date Time Status CTA PE [CT angio chest PE protcl [id number]] Routine Cat Scan 10/19/22 10:16 Completed XR chest 1V portable [id number] Routine Exams 10/19/22 00:17 Completed XR chest 1V portable [id number] Routine Exams 10/21/22 07:09 [place] [id number] Routine Ultrasound 10/19/22 10:16 Completed CV. echo complete* [id number] Routine Ultrasound 10/19/22 08:08 Completed Pending at discharge Category Date Time Status CA echo doppler complete Routine Exams 10/19/22 00:25 Stop Req Sputum Culture and Gram Stain Routine Lab 10/21/22 15:48 Received Radiology Impressions Chest X-Ray 10/21/22 07:09 IMPRESSION: Slightly worsening opacity at the right base reflecting effusion and consolidation. Decreased left effusion. Persistent left basilar/retrocardiac consolidation. Laboratory Results WBC 11.95 10^3/uL (3.29-11.43) H 10/22/22 03:16 RBC 4.96 10^6/uL (3.85-5.65) 10/22/22 03:16 Hgb 16.50 g/dL (11.27-16.99) 10/22/22 03:16 Hct 49.6 % (37-53) 10/22/22 03:16 MCV 100.0 fl (82-101) 10/22/22 03:16 MCH 33.3 pg (27-33) H 10/22/22 03:16 MCHC 33.3 g/dL (30-55) 10/22/22 03:16 RDW 14.6 % (12.1-15.1) 10/22/22 03:16 Plt Count 284 10^3/cmm (157-399) 10/22/22 03:16 MPV 9.6 fL (7.4-10.4) 10/22/22 03:16 Neut % (Auto) 75.6 % 10/22/22 03:16 Lymph % (Auto) 16.6 % 10/22/22 03:16 [place] % (Auto) 6.9 % 10/22/22 03:16 Eos % (Auto) 0.2 % 10/22/22 03:16 Baso % (Auto) 0.3 % 10/22/22 03:16 Neut # (Auto) 9.03 10^3/uL (1.8-7.7) H 10/22/22 03:16 Lymph # (Auto) 2.0 10^3/uL (0.8-4.8) 10/22/22 03:16 [place] # (Auto) 0.8 10^3/uL (0.2-0.9) 10/22/22 03:16 Eos # (Auto) 0.0 10^3/uL (0.0-0.8) 10/22/22 03:16 Baso # (Auto) 0.0 10^3/uL (0.0-0.1) 10/22/22 03:16 Nucleated RBC % (auto) 0.2 % 10/22/22 03:16 Nucleated RBCs # 0.0 /100WBC 10/22/22 03:16 APTT 48.4 SECONDS (23.9-36.7) H 10/19/22 08:34 D-Dimer 2.28 ug/mLFEU (0-0.59) H 10/19/22 08:34 Sodium 136 mmol/L (136-145) 10/22/22 03:16 Potassium 4.2 mmol/L (3.5-5.1) 10/22/22 03:16 Chloride 94 mmol/L (98-107) L 10/22/22 03:16 Carbon Dioxide 30 mmol/L (22-29) H 10/22/22 03:16 Anion Gap 16.2 (5-19) 10/22/22 03:16 BUN 30 mg/dL (8-23) H 10/22/22 03:16 Creatinine 1.5 mg/dL (0.7-1.2) H 10/22/22 03:16 GFR Calculation 46.5 mL/min (90-130) L 10/22/22 03:16 Glucose 137 mg/dL (65-115) H 10/22/22 03:16 POC Glucose 180 mg/dL (70-110) H 10/20/22 20:28 Calculated Osmolality 290 mOsm/kg (285-295) 10/22/22 03:16 Calcium 9.5 mg/dL (8.5-10.5) 10/22/22 03:16 Phosphorus 2.9 mg/dL (2.5-4.5) 10/20/22 03:22 Magnesium 2.3 mg/dL (1.7-2.3) 10/21/22 03:19 Total Bilirubin 0.7 mg/dL (0.15-1.2) 10/20/22 03:22 AST 29 U/L (0-40) 10/20/22 03:22 ALT 41 U/L (0-41) 10/20/22 03:22 Alkaline Phosphatase 112 U/L (40-130) 10/20/22 03:22 Troponin T Baseline 64 ng/L (0-15) H 10/19/22 08:34 Troponin T 120 Minute 61.99 ng/L (0-15) H 10/19/22 10:42 Delta Troponin T -2.01 ABS# (0-10) L 10/19/22 10:42 Troponin T Hi Sens 6Hr 43.73 ng/L (0-15) H 10/19/22 14:54 Troponin T Hi Sens 6Hr Delta -20.27 ng/L (0-12) L 10/19/22 14:54 NT-Pro-B Natriuret Pep 4173 pg/mL (0-125) H 10/19/22 02:50 Total Protein 6.2 g/dL (6.6-8.7) L 10/20/22 03:22 Albumin 3.0 g/dL (3.5-5.2) L 10/20/22 03:22 Globulin 3.2 g/dL (1.3-4.6) 10/20/22 03:22 TSH 2.11 uIU/mL (0.27-4.20) 10/19/22 08:34 Coronavirus 229E (PCR) Not detected (NOT DETECT) 10/21/22 10:00 SARS-CoV-2 (PCR) Not detected (NOT DETECT) 10/21/22 10:00 Vitals Last Vital Signs Temp 98.4 F 10/22/22 04:00 Pulse 91 10/22/22 05:47 Resp 26 H 10/22/22 04:00 BP 144/84 10/22/22 04:00 Pulse Ox 99 10/22/22 04:00 O2 Del Method Nasal Cannula 10/22/22 04:00 O2 Flow Rate 2 10/21/22 08:00 FiO2 21 10/21/22 18:00 Discharge Plan Discharge Patient Disposition: Home Condition: Stable Prescriptions: New Eliquis 5 mg Tablet 5 mg PO BID@0900,2100 Qty: 60 3RF levofloxacin 750 mg tablet 750 mg PO DAILY 5 Days Qty: 5 0RF furosemide [Lasix] 20 mg tablet 20 mg PO DAILY Qty: 60 0RF potassium chloride [Klor-Con M20] 20 mEq Tablet,Er Particles/Crystals 20 meq PO DAILY Qty: 60 0RF metoprolol tartrate 50 mg Tablet 100 mg PO BID@0900,2100 Qty: 60 2RF Continued aspirin 81 mg 81 mg PO BEDTIME metformin 500 mg 500 mg PO BID duloxetine 60 mg Capsule, Delayed Rel Sprinkle 60 mg PO QAM gabapentin 100 mg 200 mg PO BID tizanidine 4 mg Tablet 4 mg PO BID losartan-hydrochlorothiazide 100-25 mg Tablet 1 tab PO QAM clonazepam 2 mg Tablet 2 mg PO BEDTIME clonazepam 1 mg tablet 1 mg PO DAILY Multi-Vitamin Tablet 1 tab PO DAILY zinc acetate 50 mg (zinc) Capsule 50 mg PO DAILY Grape Seed 50 mg Tablet 150 mg PO DAILY Rx Instructions: give with food (meal/snack) selenium 50 mcg Tablet 50 mcg PO DAILY magnesium 250 mg Tablet 250 mg PO DAILY Vitamin D3 50 mcg (2,000 unit) Tablet 50 mcg PO DAILY albuterol sulfate 90 mcg/actuation HFA aerosol inhaler 2 inh INHALATION Q4H PRN (Reason: Shortness Of Breath) Discharge Orders: Discharge Order (Routine); Ordered 10/22/22 Ordered By: Jolanta Bond Referrals: Aureliano Golden MD [Primary Care Provider] - 10/25/22 2:00 pm Patient Instructions: Metoprolol (By mouth) (Lopressor, Toprol XL), Furosemide (By mouth) (Lasix), Potassium Chloride (By mouth), Levofloxacin (By mouth) (Levaquin, Levaquin Leva-annamaria), Apixaban (By mouth) (Eliquis), A-fib (Atrial Fibrillation) (DC), Acute Kidney Injury (DC), Community Acquired Pneumonia (DC), Hypertension (DC), CHF Stoplight, Opioid Safety Activity Restrictions/Additional Instructions: You have been given Lasix along potassium for your congestive heart failure EF is 40% For atrial flutter he will take Eliquis which is a blood thinner please watch for dark-colored stools some people tend to bleed with Eliquis in that scenario you will stop taking Eliquis and might need EGD and colonoscopy For rate control we have given you metoprolol 100 mg twice daily Discharge Attestations Time Spent in Discharge Care*: greater than 30 min Quality Metrics Clinical Quality Measures [ No reported AMI, CVA or VTE this stay] Coding Level of Care Code Acute Code for Chg Fwd Diagnoses Glucose intolerance E74.39 Essential hypertension I10 Cardiomyopathy I42.9 Hypokalemia E87.6 New onset of congestive heart failure I50.9 Shortness of breath R06.02 New onset atrial fibrillation I48.91 Acute kidney injury N17.9
--- NOTE | 2022-10-22 07:03 | PC.NURSE ---
Pt wanting to leave citing that he can't sleep and wants to go home. Pt made these comments several times yesterday and I thought I was able to get through to him the importance of staying and letting us continue to monitor and work on his rhythm as he isn't where he needs to be as yet and that we have come this far and if he left AMA that he would be having to start all over wherever her goes as he will go back into A. fib most likely and will be short of breath. Pt seemed to understand;however, I think that his is really wanting him to go to [facility] in [place] which he wasn't able to do the other day as they were on diversion and refused to accept him at that time. Pt has also stated on several occasions yesterday that he didn't want to go to [facility] because it is such a big hospital and he liked it here and didn't care what his wanted. Pt remains on cardizem drip at this time and though his heart rate is stable and remains in the 80's-90's, it still remains in a.flutter and has not converted to sinus rhythm.
[2022-10-22 07:40] VITALS: BP 144/100; PULSE 69; RESP 27; O2SAT 96
[2022-10-22 08:00] VITALS: PULSE 61; RESP 18; O2SAT 90
[2022-10-22] MEDS: magnesium oxide 400 mg tablet PO (08:06)
[2022-10-22] MEDS: azithromycin 250 mg Tablet 500 MG PO (08:06)
[2022-10-22] MEDS: losartan 50 mg Tablet PO (08:06)
[2022-10-22] MEDS: cefTRIAXone 1,000 MG in sodium chloride 0.9% (plus) 50 ML 100 MG IV (08:07)
[2022-10-22] MEDS: gabapentin 100 mg Capsule 200 MG PO (08:07)
[2022-10-22] MEDS: metoprolol tartrate 50 mg Tablet 100 MG PO (08:07)
[2022-10-22] MEDS: apixaban 5 mg Tablet PO (08:07)
[2022-10-22 09:50] VITALS: BP 144/100; PULSE 69; RESP 27; O2SAT 96
[2022-10-22 10:21] VITALS: O2SAT 88; O2SAT 92
--- NOTE | 2022-10-22 11:55 | PC.NURSE ---
An extensive review of medications, diagnosis's and plan of care was reviewed with the pt and his at discharge. Explained to the pt and the most commons side effects to be watchful for with all the new medications. Explained that it wasn't best practice to leave while we were still making adjustments to medications and instructed them on what to be particularly watchful for as they were not affording us the ability to do this for them so that the docs would know what medication adjustments may need to be made. Also, the pt qualified for Oxygen and I had been waiting for it to be delivered; however, the pt and his were pretty adamant about wanting to leave and did not want to wait for their provider of choice to deliver any oxygen to his room prior to his beieng discharged. The said, I will lug breaker and wire puller on the side of the road and give him [id number] resuscitation if I need to but I think we will be fine. Pt was then wheeled out of his room to their POV for discharge to home.
== END 2022-10-22 11:45 | disposition home or self-care (01) | DRG 308 ==
PROVIDERS: Internal Medicine; Admitting Provider Internal Medicine; PCP Family Medicine; Visit Provider Internal Medicine
DX: I48.0 Paroxysmal atrial fibrillation (principal); I50.21 Acute systolic (congestive) heart failure; J18.9 Pneumonia, unspecified organism; N17.9 Acute kidney failure, unspecified; I11.0 Hypertensive heart disease with heart failure; I48.92 Unspecified atrial flutter; Z79.82 Long term (current) use of aspirin; Z79.51 Long term (current) use of inhaled steroids; E74.39 Other disorders of intestinal carbohydrate absorption; I42.9 Cardiomyopathy, unspecified; J45.909 Unspecified asthma, uncomplicated; F32.A Depression, unspecified; E87.6 Hypokalemia; F41.9 Anxiety disorder, unspecified; Z53.29 Procedure and treatment not carried out because of patient's decision for other reasons
CPT/HCPCS: 36415; 36416; 36573; 36592; 71045; 71275; 80048; 80053; 82962; 83735; 83880; 84100; 84443; 84484; 85025; 85049; 85378; 85730; 87070; 87205; 87635; 93005; 93306; 93970; 94664; 94760; 96372; 96376; J0696; J1644; J1650; J1940; J3490; Q0144; Q9967